=== PATIENT | female | born 1970 | race Caucasian/White ===

== ENCOUNTER 2017-07-13 21:59 | Emergency (ER) | payer OTHER ==
[~2017-07-13] VITALS: Ht 152.4 cm; Wt 93.0 kg
[2017-07-13 22:51] LABS: ABSOLUTE BASOPHIL COUNT 0 /CUMM (0.0-0.2); ABSOLUTE EOSINOPHIL COUNT 0.2 /CUMM (0.0-0.7); ABSOLUTE GRANULOCYTE CT 6.4 /CUMM (1.4-6.5); ABSOLUTE LYMPH COUNT 1.6 /CUMM (1.2-3.4); ABSOLUTE MONOCYTE COUNT 0.4 /CUMM (0.10-0.60); BASOPHIL % 0.4 % (0.0-2.0); EOSINOPHIL % 1.8 % (0-5); GRANULOCYTE % 74.6 % (42.2-75.2); HEMATOCRIT 40.6 % (37-47); MEAN CORPUSCULAR HGB 29.5 PG (27.0-31.0); MEAN CORPUSCULAR HGB CONC 33.3 G/DL (33.0-37.0); MEAN CORPUSCULAR VOLUME 88.5 FL (81.0-99.0); MEAN PLATELET VOLUME 7.1 FL (7.4-10.4); PLATELET COUNT 324 /CUMM (130-400); RBC DISTRIBUTION WIDTH 13.4 % (11.5-14.5); RED BLOOD CELL CT 4.59 /CUMM (4.20-5.40); WHITE BLOOD CELL COUNT 8.5 /CUMM (4.8-10.8)
--- NOTE | 2017-07-14 00:07 | ED GI/GU/ABDOMINAL COMPLAINT ---
History of Present Illness General Chief Complaint: General Adult Stated Complaint: MULTI COMPLAINTS CP Source: patient, family Exam Limitations: no limitations Vital Signs & Intake/Output Vital Signs & Intake/Output Vital Signs Date Time Temp Pulse Resp B/P B/P Pulse O2 O2 Flow FiO2 Mean Ox Delivery Rate 07/14 0222 97.8 72 20 133/57 99 Room Air 07/13 2210 97.1 86 20 148/100 98 Room Air ED Intake and Output 07/14 0000 07/13 1200 Intake Total Output Total Balance Patient 205 lb Weight Triage Note: PT TO TRIAGE WITH MULTIPLE COMPLAINTS, CP, N/V, HEADACHE, JAW PAIN AND PERIODS OF SOB. SPEAKING IN CLEAR SENTENCES IN TRIAGE. NO OVERT RESP DISTRESS NOTED. PT ALSO NOW C/O SWEATING AND FREEZING COLD. AFEBRILE. Triage Nurses Notes Reviewed? yes HPI: 47F PMH T2DM, HLD, was in her usual state of health this morning, around noon experienced chills, laid down on the floor and slept for an hour, got up covered in sweat, went to bed and slept for 3 hours, awoke again, sweaty, and came to the kitchen to eat. She has felt on and off stabbing epigastric pain today, pain free at this time. She has had chills and sweats on and off all day today. She vomited late in the day. She feels dehydrated. She is otherwise well at this time. Denies chest pain, SOB, syncope, diarrhea, constipation, dysuria. Reports lower abdominal cramping intermittently. Also reports left sided jaw pain which is resolved. Never had similar symptoms before. No sick contacts or travel. (Jillian BAEZA,[facility]) Allergies Coded Allergies: amoxicillin (Mild, RASH 07/14/17) ? n Is pt currently ? No (Karine BAEZA,Sea Rodríguez) Past History Travel History Traveled to [place] past 21 day No Medical History Any Pertinent Medical History? 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 No (Chong Walsh MD) Review of Systems Review of Systems Constitutional: Reports: no symptoms. EENTM: Reports: no symptoms. Respiratory: Reports: no symptoms. Cardiovascular: Reports: no symptoms. GI: Reports: no symptoms. Genitourinary: Reports: no symptoms. Musculoskeletal: Reports: no symptoms. Skin: Reports: no symptoms. Neurological/Psychological: Reports: no symptoms. Hematologic/Endocrine: Reports: no symptoms. Immunologic/Allergic: Reports: no symptoms. All Other Systems: Reviewed and Negative (Chong Walsh MD) Physical Exam Physical Exam General Appearance: well developed/nourished, no apparent distress Head: atraumatic, normal appearance Eyes: Bilateral: normal appearance. Ears, Nose, Throat, Mouth: hearing grossly normal, moist mucous membrane Neck: normal inspection, supple, full range of motion Respiratory: normal breath sounds, no respiratory distress Cardiovascular: regular rate/rhythm Gastrointestinal: soft, non-tender Back: normal inspection Extremities: normal range of motion Neurologic/Psych: awake, alert, oriented x 3, normal mood/affect Skin: intact, normal color, warm/dry Core Measures ACS in differential dx? No Sepsis Present: No Sepsis Focused Exam Completed? No (Chong Walsh MD) Progress Differential Diagnosis: AAA, AMI, appendicitis, biliary colic, bowel obstruction , colon cancer, cholecystitis, diverticulitis, ectopic , endometritis, esophageal varices, gastritis, hepatitis, hernia, hemorrhoids, ischemic bowel, inflamm bowel dis, intrauterine , kidney stone, Lilly-Dana tear, ovarian cyst, ovarian torsion, pancreatitis, PID/cervicitis, peptic ulcer, PUD/ GERD, perforated viscous, SBO, threatened AB, UTI/pyelo Plan of Care: Orders Procedure Date/time Status URINALYSIS 07/13 2359 Complete Add-on Test (ER Only) 07/13 2357 Active THYROID STIMULATING HORMONE 07/13 2238 Complete TROPONIN LEVEL 07/13 2223 Complete LIPASE 07/13 2223 Complete HEPATIC FUNCTION PANEL 07/13 222 Complete HUMAN BETA HCG SCREEN 07/13 2223 Complete D-DIMER 07/13 2223 Complete CBC WITHOUT DIFFERENTIAL 07/13 222 Complete BASIC METABOLIC PANEL 07/13 222 Complete AMYLASE 07/13 222 Complete EKG 05/04 2200 Active Laboratory Tests 07/14/17 0200: Urine Color YEL, Urine Clarity CLEAR, Urine pH 6.0, Ur Specific [place] 1.025, Urine Protein NEG, Urine Ketones NEG, Urine Nitrite NEG, Urine Bilirubin NEG, Urine Urobilinogen 0.2, Ur Leukocyte Esterase NEG, Ur Microscopic EXAM NOT REQUIRED, Urine Hemoglobin NEG, Urine Glucose NEG 07/13/17 2238: Anion Gap 12, Estimated GFR > 60, BUN/Creatinine Ratio 23.3, Glucose 150 H, Calcium 10.0, Total Bilirubin 0.7, Direct Bilirubin 0.3, AST 127 H, ALT 129 H, Alkaline Phosphatase 102, Troponin I < 0.01, Total Protein 7.2, Albumin 4.5, Amylase 98, Lipase 71, TSH 1.840, Total Beta HCG NEGATIVE, D-Dimer High Sensitivty < 200, CBC w Diff NO MAN DIFF REQ, RBC 4.59, MCV 88.5, MCH 29.5, MCHC 33.3, RDW 13.4, MPV 7.1 L, Gran % 74.6, Lymphocytes % 19.0 L, Monocytes % 4.2, Eosinophils % 1.8, Basophils % 0.4, Absolute Granulocytes 6.4, Absolute Lymphocytes 1.6, Absolute Monocytes 0.4, Absolute Eosinophils 0.2, Absolute Basophils 0 Initial ED EKG: normal sinus rhythm, no ST T wave changes (Jillian BAEZA,Chong) Diagnostic Imaging: Viewed by Me: CT Scan. Discussed w/RAD: CT Scan. Radiology Impression: PATIENT: ALLIE CANDELARIA PRESENT AGE: 47 PATIENT ACCOUNT NO: [id number] : 69 LOCATION: [facility] ORDERING PHYSICIAN: Chong Walsh MD SERVICE DATE: 07/14/17 EXAM TYPE : CAT - CT ABD & PELVIS W IV CONTRAST EXAMINATION: CT ABDOMEN AND PELVIS WITH CONTRAST CLINICAL INFORMATION: Epigastric and left upper quadrant pain with rigors COMPARISON: None TECHNIQUE: Multidetector volumetric imaging was performed of the abdomen and pelvis following IV administration of 95 mL of Optiray 320 intravenous contrast. Sagittal and coronal reformatted images were obtained on the technologist's workstation. DLP: 1144.59 mGy-cm FINDINGS: LUNG BASES: The visualized lung bases are unremarkable. LIVER, GALLBLADDER, AND BILIARY TREE: The liver is normal in size, shape, and attenuation. No focal hepatic lesion or biliary ductal dilatation is present. Patient is status post cholecystectomy. PANCREAS: Unremarkable. SPLEEN: Unremarkable. ADRENAL GLANDS: Unremarkable. KIDNEYS AND URETERS: The kidneys are normal in size, shape, and attenuation. No hydronephrosis, hydroureter, or calculi seen. No perinephric stranding. BLADDER: Unremarkable. GASTROINTESTINAL TRACT: The small and large bowel are unremarkable. The appendix is unremarkable. No free fluid or free air is seen. ABDOMINAL WALL: No significant hernia is appreciated. LYMPH NODES: Normal. VASCULAR: Unremarkable. PELVIC VISCERA: Essure device noted bilaterally. There is a suspected fibroid along the right aspect of the uterine body measuring 3.2 x 2.2 cm. OSSEOUS STRUCTURES: Unremarkable. IMPRESSION: No acute findings identified in the abdomen/pelvis. DICTATED BY: Shady Gant MD DATE/ TIME DICTATED:07/14/17148 ROOM SERVICE SERVER:DARA DATE/TIME TRANSCRIBED: 07/14/17148 CONFIDENTIAL, DO NOT COPY WITHOUT APPROPRIATE AUTHORIZATION. < Electronically signed in Other Vendor System> SIGNED BY: Shady Gant MD 07/14/17 0208 (Sea Milton MD) Departure Departure Disposition: HOME OR SELF CARE Condition: Stable Clinical Impression Primary Impression: Acute gastroenteritis Secondary Impressions: GERD (gastroesophageal reflux disease) Referrals: Rakel Mckoy MD (PCP/Family) Additional Instructions: Follow up with your PCP. Return to ER if new or worsening symptoms. Departure Forms: Customer Survey General Discharge Information (Chong Walsh MD) Departure Comments discussed at length with patient... benign labs/ct scan... pt safe for discharge with close follow up advised. (Karine BAEZA,Sea Rodríguez)
--- NOTE | 2017-07-14 02:08 | CT SCAN REPORT ---
EXAMINATION: CT ABDOMEN AND PELVIS WITH CONTRAST CLINICAL INFORMATION: Epigastric and left upper quadrant pain with rigors COMPARISON: None TECHNIQUE: Multidetector volumetric imaging was performed of the abdomen and pelvis following IV administration of 95 mL of Optiray 320 intravenous contrast. Sagittal and coronal reformatted images were obtained on the technologist's workstation. DLP: 1144.59 mGy-cm FINDINGS: LUNG BASES: The visualized lung bases are unremarkable. LIVER, GALLBLADDER, AND BILIARY TREE: The liver is normal in size, shape, and attenuation. No focal hepatic lesion or biliary ductal dilatation is present. Patient is status post cholecystectomy. PANCREAS: Unremarkable. SPLEEN: Unremarkable. ADRENAL GLANDS: Unremarkable. KIDNEYS AND URETERS: The kidneys are normal in size, shape, and attenuation. No hydronephrosis, hydroureter, or calculi seen. No perinephric stranding. BLADDER: Unremarkable. GASTROINTESTINAL TRACT: The small and large bowel are unremarkable. The appendix is unremarkable. No free fluid or free air is seen. ABDOMINAL WALL: No significant hernia is appreciated. LYMPH NODES: Normal. VASCULAR: Unremarkable. PELVIC VISCERA: Essure device noted bilaterally. There is a suspected fibroid along the right aspect of the uterine body measuring 3.2 x 2.2 cm. OSSEOUS STRUCTURES: Unremarkable. IMPRESSION: No acute findings identified in the abdomen/pelvis.
--- NOTE | 2017-07-14 02:09 | RADIOLOGY REPORT ---
EXAMINATION: XR PORTABLE CHEST CLINICAL INFORMATION: Chest pain COMPARISON: 06/09/2012 TECHNIQUE: Portable frontal view of the chest was obtained. FINDINGS: The lungs are clear with no focal consolidation. No evidence of pneumothorax, pulmonary edema, or pleural effusions. The cardiomediastinal silhouette is unremarkable. No acute osseous findings. IMPRESSION: No acute cardiopulmonary findings.
[2017-07-14 02:22] VITALS: BP 133/57
== END 2017-07-14 03:04 ==
LOC: ERH 21:59
PROVIDERS: Pediatrics
DX: K52.9 Noninfective gastroenteritis and colitis, unspecified (principal); K21.9 Gastro-esophageal reflux disease without esophagitis
CPT/HCPCS: 71045; 74177; 81003; 93005; 93010; 96361; 96374

== ENCOUNTER 2017-11-03 02:04 | Emergency (ER) | payer OTHER ==
[~2017-11-03] VITALS: Ht 152.4 cm; Wt 93.4 kg
--- NOTE | 2017-11-03 02:14 | ED GENERAL ADULT ---
History of Present Illness General Chief Complaint: General Adult Stated Complaint: "LOW BS,SHAKEY,ON METFORMIN" Source: patient Exam Limitations: no limitations Vital Signs & Intake/Output Vital Signs & Intake/Output Vital Signs Date Time Temp Pulse Resp B/P B/P Pulse O2 O2 Flow FiO2 Mean Ox Delivery Rate 11/03 0609 98.9 80 18 131/69 98 Room Air 11/03 0456 97.7 80 18 134/83 97 Room Air 11/03 0248 97 Room Air 11/03 0219 98.4 76 18 148/91 97 Room Air Allergies Coded Allergies: amoxicillin (Mild, RASH 07/14/17) Triage Nurses Notes Reviewed? yes Onset: Gradual Duration: hour(s):, waxing and waning Timing: recent history Injury Environment: home Severity: mild Modifying Factors: Improves With: rest. HPI: 47 yo woman with pre-diabetes and hypercholesterolemia, presents with several constitutional symptoms that began at approximately 7pm. She shares, "I've been staying in the hosptital with my friend who is .. dysing in the ICU from liver problems.... I noticed this evening that I have body aches and numbness and tingling in my arms.... I feel really anxious too... I felt for a few moments some chest pressure (wihtout radiation, diaphoresis, dizziness)" "I just feel like I'm so run down." She notes "It felt like my sugar might be low... but I think it's really my nerves because my friend is sick." No fever, chills, shortness of breath, wheezing, phlegm, focal weakness. Past History Travel History Traveled to [place] past 21 day No Medical History Any Pertinent Medical History? 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 No Review of Systems Review of Systems Constitutional: Reports: no symptoms. EENTM: Reports: no symptoms. Respiratory: Reports: no symptoms. Cardiovascular: Reports: no symptoms. GI: Reports: no symptoms. Genitourinary: Reports: no symptoms. Musculoskeletal: Reports: no symptoms. Skin: Reports: no symptoms. Neurological/Psychological: Reports: no symptoms. Hematologic/Endocrine: Reports: no symptoms. Immunologic/Allergic: Reports: no symptoms. All Other Systems: Reviewed and Negative Physical Exam Physical Exam General Appearance: well developed/nourished, no apparent distress Head: atraumatic, normal appearance Eyes: Bilateral: normal appearance. Ears, Nose, Throat: normal pharynx, normal ENT inspection Neck: normal inspection, supple, full range of motion Respiratory: normal breath sounds, chest non-tender, no respiratory distress, quiet respiration, lungs clear Cardiovascular: regular rate/rhythm Gastrointestinal: normal bowel sounds, soft, non-tender, no organomegaly Back: normal inspection, normal range of motion Extremities: normal inspection Neurologic/Psych: no motor/sensory deficits, awake, alert, oriented x 3 Skin: intact, normal color, warm/dry Core Measures ACS in differential dx? No CVA/TIA Diagnosis: No Sepsis Present: No Sepsis Focused Exam Completed? No Progress Differential Diagnoses I considered the following diagnoses in my evaluation of the patient: medication side effect vs anxiety vs other. Plan of Care: Orders Procedure Date/time Status TROPONIN LEVEL 11/03 444 Complete EKG 11/03 444 Active Add-on Test (ER Only) 11/03 0254 Active HUMAN BETA HCG SCREEN 11/03 024 Complete D-DIMER 11/03 0231 Complete TROPONIN LEVEL 11/03 213 Complete LIPASE 11/03 213 Complete LACTIC ACID 11/03 213 Complete HEPATIC FUNCTION PANEL 11/03 213 Complete CBC WITHOUT DIFFERENTIAL 11/03 213 Complete BASIC METABOLIC PANEL 11/03 213 Complete AMYLASE 11/03 213 Complete EKG 11/03 213 Active Laboratory Tests 11/03/17 0444: Troponin I < 0.01 11/03/17 0240: Anion Gap 7, Estimated GFR > 60, BUN/Creatinine Ratio 15.0, Glucose 128 H, Lactic Acid 1.1, Calcium 10.2, Total Bilirubin 0.5, Direct Bilirubin 0, AST 16, ALT 38, Alkaline Phosphatase 89, Troponin I < 0.01, Total Protein 6.6, Albumin 4.1, Amylase 70, Lipase 94, Total Beta HCG NEGATIVE, D-Dimer High Sensitivty < 200, CBC w Diff NO MAN DIFF REQ, RBC 4.44, MCV 89.3, MCH 29.5, MCHC 33.1, RDW 13.2, MPV 7.1 L, Gran % 73.4, Lymphocytes % 19.9 L, Monocytes % 4.8, Eosinophils % 1.7, Basophils % 0.2, Absolute Granulocytes 7.5 H, Absolute Lymphocytes 2.0, Absolute Monocytes 0.5, Absolute Eosinophils 0.2, Absolute Basophils 0 Diagnostic Imaging: Viewed by Me: Radiology Read. Discussed w/RAD: Radiology Read. CXR Impression: PATIENT: ALLIE CANDELARIA PRESENT AGE: 47 PATIENT ACCOUNT NO: [id number] : 69 LOCATION: [facility] ORDERING PHYSICIAN: Sea Milton MD SERVICE DATE: 11/03/17 EXAM TYPE: RAD - XRY- PORTABLE CHEST XRAY EXAMINATION: CHEST 1 VIEW CLINICAL INFORMATION: Chest discomfort. Pain. COMPARISON: July 14, 2017. TECHNIQUE: An AP view of the chest is provided. FINDINGS: The cardiac silhouette is not enlarged. The mediastinal and hilar contours are unremarkable. There are neither pleural effusions nor pneumothoraces. There are no consolidations. The osseous structures are unremarkable. IMPRESSION: No evidence for acute disease. DICTATED BY: Dominguez Booker MD DATE/TIME DICTATED:11/03/17410 CARE SUPPORT REPRESENTATIVE:DARA DATE/TIME TRANSCRIBED:11/03/17410 CONFIDENTIAL, DO NOT COPY WITHOUT APPROPRIATE AUTHORIZATION. <Electronically signed in Other Vendor System> SIGNED BY: Dominguez Booker MD 11/03/17414 Initial ED EKG: normal axis, normal intervals, normal p-waves, normal QRS complex, normal sinus rhythm Repeat EKG: unchanged Departure Departure Disposition: HOME OR SELF CARE Condition: Stable Clinical Impression Primary Impression: Myalgia Secondary Impressions: Numbness and tingling in both hands Referrals: Rakel Mckoy MD (PCP/Family) Departure Forms: Customer Survey General Discharge Information Comments 11/03/17, 6:10am... pt feeling better after several hours of sleep.... labs/ekg benign. she feels comfortable going home. Critical Care Note Critical Care Note Critical Care Time: non-applicable
[2017-11-03 02:58] LABS: ABSOLUTE BASOPHIL COUNT 0 /CUMM (0.0-0.2); ABSOLUTE EOSINOPHIL COUNT 0.2 /CUMM (0.0-0.7); ABSOLUTE GRANULOCYTE CT 7.5 /CUMM (1.4-6.5); ABSOLUTE MONOCYTE COUNT 0.5 /CUMM (0.10-0.60); BASOPHIL % 0.2 % (0.0-2.0); EOSINOPHIL % 1.7 % (0-5); GRANULOCYTE % 73.4 % (42.2-75.2); HEMATOCRIT 39.6 % (37-47); MEAN CORPUSCULAR HGB 29.5 PG (27.0-31.0); MEAN CORPUSCULAR HGB CONC 33.1 G/DL (33.0-37.0); MEAN CORPUSCULAR VOLUME 89.3 FL (81.0-99.0); MEAN PLATELET VOLUME 7.1 FL (7.4-10.4); PLATELET COUNT 326 /CUMM (130-400); RBC DISTRIBUTION WIDTH 13.2 % (11.5-14.5); RED BLOOD CELL CT 4.44 /CUMM (4.20-5.40); WHITE BLOOD CELL COUNT 10.2 /CUMM (4.8-10.8)
--- NOTE | 2017-11-03 04:15 | RADIOLOGY REPORT ---
EXAMINATION: CHEST 1 VIEW CLINICAL INFORMATION: Chest discomfort. Pain. COMPARISON: July 14, 2017. TECHNIQUE: An AP view of the chest is provided. FINDINGS: The cardiac silhouette is not enlarged. The mediastinal and hilar contours are unremarkable. There are neither pleural effusions nor pneumothoraces. There are no consolidations. The osseous structures are unremarkable. IMPRESSION: No evidence for acute disease.
[2017-11-03 06:09] VITALS: BP 131/69
== END 2017-11-03 06:09 ==
LOC: ERH 02:04
PROVIDERS: Pediatrics
DX: M79.1 Myalgia (principal); R20.0 Anesthesia of skin; R20.2 Paresthesia of skin; R07.89 Other chest pain
CPT/HCPCS: 71045; 93005; 93010